=== PATIENT | female | born 1930 | race Caucasian/White ===

== ENCOUNTER 2016-12-12 12:41 | Inpatient (IN) | payer OTHER ==
[~2016-12-12] VITALS: Ht 152.4 cm; Wt 41.3 kg
[2016-12-12] MEDS ORDERED: MAGNESIUM HYDROXIDE 30 ML UDC PO PRN (13:30)
[2016-12-12] MEDS ORDERED: ACETAMINOPHEN 325 MG TABLET PO PRN (13:30)
[2016-12-12] MEDS ORDERED: clonazePAM 0.5 MG TABLET PO PRN (13:30)
[2016-12-12] MEDS ORDERED: MAG HYDROX/AL HYDROX/SIMETH 30 ML UDC PO PRN (13:30)
[2016-12-12] MEDS ORDERED: MEMA28CA PO (13:47)
[2016-12-12] MEDS ORDERED: SITA100T PO (13:47)
[2016-12-12] MEDS ORDERED: VENL37.55 PO (13:47)
[2016-12-12] MEDS ORDERED: ATOR10TA PO (13:47)
[2016-12-12] MEDS ORDERED: METF500T4 PO (13:47)
[2016-12-12] MEDS ORDERED: OLME40TA3 PO (13:47)
[2016-12-12] MEDS ORDERED: PIOG15TA3 PO (13:47)
[2016-12-12 13:48] VITALS: BP 147/64
[2016-12-12] MEDS: DIVALPROEX SODIUM 125 MG CAP.SPRINK PO SCH ×3 (14:00→21:30)
--- NOTE | 2016-12-12 14:30 | NUR ---
GPS RN: DIRECT ADMISSION FROM [facility], PATIENT ARRIVED AT 1300. PATIENT IS ON 51/50 HOLD FOR DANGER TO OTHERS AND GRAVE DISABILITY. A/OX1, CONFUSED, GUARDED, ANXIOUS. VS STABLE. BELONGINGS CHECKED FOR CONTRABAND. ADMITTING ORDERS RECEIVED FROM DR. MARROQUIN, DR. MARINO NOTIFIED. PATIENT ORIENTED TO HER ROOM AND UNIT, SAFETY PRECAUTIONS IMPLEMENTED, CONTINUE TO MONITOR.
[2016-12-12 16:00] VITALS: BP 140/62
[2016-12-12] MEDS: MEMANTINE HCL 5 MG TABLET PO SCH (16:29)
[2016-12-12] MEDS: METFORMIN 500 MG TABLET PO SCH (16:30)
--- NOTE | 2016-12-12 17:45 | NUR ---
GPS RN: MRSA SWAB DONE, LAB NOTIFIED TO RUBBER PRESS OPERATOR.
[2016-12-12] MEDS ORDERED: Medication Not On Formulary EA (Sitagliptin Phosphate (Januvia) 100 MG) PO SCH (18:00)
[2016-12-12 20:00] VITALS: BP 128/63
[2016-12-12] MEDS: ATORVASTATIN 10 MG TABLET PO SCH (21:30)
[2016-12-13] MEDS: TEMAZEPAM 7.5 MG CAPSULE PO PRN (00:52)
[2016-12-13 07:27] LABS: ALBUMIN 3.4 g/dL (3.4-5.0); BILIRUBIN,TOTAL 0.3 mg/dL (0.2-1.0); CALCIUM, SERUM 8.9 mg/dL (8.5-10.1); CREATININE 1.2 mg/dL (0.6-1.3); POTASSIUM 3.7 mmol/L (3.5-5.1); TOTAL PROTEIN, SERUM 6.4 g/dL (6.4-8.2)
[2016-12-13] MEDS: VENLAFAXINE 37.5 MG TABLET PO SCH (08:03)
[2016-12-13] MEDS: PIOGLITAZONE HCL 15 MG TABLET PO SCH (08:04)
[2016-12-13] MEDS: LINAGLIPTIN 5 MG TABLET PO SCH (08:04)
[2016-12-13] MEDS: DIVALPROEX SODIUM 125 MG CAP.SPRINK PO SCH ×2 (08:04→21:02)
[2016-12-13] MEDS: METFORMIN 500 MG TABLET PO SCH ×2 (08:04→17:06)
[2016-12-13] MEDS: MEMANTINE HCL 5 MG TABLET PO SCH ×2 (08:04→17:06)
[2016-12-13 08:34] VITALS: BP 146/62
[2016-12-13 08:36] VITALS: BP 146/62
[2016-12-13] MEDS: Z GUARD REMEDY 2 OZ OINT TP SCH (09:00)
--- NOTE | 2016-12-13 14:33 | NUR ---
UR update: MAGGIE faxed clinicals (Psych H&P, Med H&P, med list, face sheet, psych progress note) to [facility] patient case coordinator for [facility] (fax: / phone: [phone] ext. [phone]). MAGGIE will follow-up.
[2016-12-13 16:00] VITALS: BP 144/76
--- NOTE | 2016-12-13 17:14 | NUR ---
Initial Discharge Plan: Per patient she lives in a house with family [address] [place] [address]. SW attempted to contact Nelly Abbasi ([phone]/ [phone]) However, both numbers were not in service. Patient might need placement. MAGGIE will follow- up with MD regarding most appropriate discharge and will help form a safe and proper discharge.
[2016-12-13] MEDS: BENICAR 40 MG PO SCH (18:30)
--- NOTE | 2016-12-13 19:30 | NUR ---
GPS RN NOTES RECEIVED IN THE ACTIVITY ROOM WITH FAMILY MEMBERS WITH HER,ABLE TO CONVERSE WITH FAMILY IN CALM MANNER.NO IV ACCESS.WILL CONTINUE TO MONITOR BEHAVIOR.
[2016-12-13 19:59] VITALS: BP 147/77
[2016-12-13 20:00] VITALS: BP 145/77
[2016-12-13] MEDS: ATORVASTATIN 10 MG TABLET PO SCH (22:19)
--- NOTE | 2016-12-13 23:00 | NUR ---
GPS RN NOTES AWAKE,OFFERED SLEEPING PILL BUT REFUSED
[2016-12-14 08:27] VITALS: BP 135/87
[2016-12-14] MEDS: VENLAFAXINE 37.5 MG TABLET PO SCH (08:43)
[2016-12-14] MEDS: METFORMIN 500 MG TABLET PO SCH ×2 (08:43→16:40)
[2016-12-14] MEDS: PIOGLITAZONE HCL 15 MG TABLET PO SCH (08:43)
[2016-12-14] MEDS: MEMANTINE HCL 5 MG TABLET PO SCH ×2 (08:43→16:40)
[2016-12-14] MEDS: DIVALPROEX SODIUM 125 MG CAP.SPRINK PO SCH ×2 (08:43→21:04)
[2016-12-14] MEDS: LINAGLIPTIN 5 MG TABLET PO SCH (08:43)
[2016-12-14] MEDS: BENICAR 40 MG PO SCH (08:44)
[2016-12-14] MEDS: Z GUARD REMEDY 2 OZ OINT TP SCH (08:45)
[2016-12-14 16:00] VITALS: BP 117/72
[2016-12-14 20:00] VITALS: BP 150/76
[2016-12-14] MEDS: ATORVASTATIN 10 MG TABLET PO SCH (21:04)
[2016-12-14] MEDS: TEMAZEPAM 7.5 MG CAPSULE PO PRN (23:24)
[2016-12-15 08:00] VITALS: BP 131/63
[2016-12-15] MEDS: LINAGLIPTIN 5 MG TABLET PO SCH (09:08)
[2016-12-15] MEDS: PIOGLITAZONE HCL 15 MG TABLET PO SCH (09:08)
[2016-12-15] MEDS: METFORMIN 500 MG TABLET PO SCH ×2 (09:08→16:49)
[2016-12-15] MEDS: VENLAFAXINE 37.5 MG TABLET PO SCH (09:08)
[2016-12-15] MEDS: MEMANTINE HCL 5 MG TABLET PO SCH ×2 (09:08→16:49)
[2016-12-15] MEDS: DIVALPROEX SODIUM 125 MG CAP.SPRINK PO SCH ×2 (09:08→21:43)
[2016-12-15] MEDS: BENICAR 40 MG PO SCH (09:09)
[2016-12-15] MEDS: Z GUARD REMEDY 2 OZ OINT TP SCH (09:10)
[2016-12-15 15:50] VITALS: BP 110/65
[2016-12-15 19:59] VITALS: BP 160/84
[2016-12-15] MEDS: ATORVASTATIN 10 MG TABLET PO SCH (21:43)
--- NOTE | 2016-12-16 00:21 | NUR ---
Pt has been calm & compliant but with flat affect. She gets quite anxious on & off but her po noc meds relatively decreased her anxiety level tonight.
[2016-12-16 07:27] LABS: BASOPHILS % (AUTO) 0.4 % (0.0-2.0); EOSINOPHILS % (AUTO) 0.3 % (0.0-6.0); HEMATOCRIT 33 % (33-45); HEMOGLOBIN 11.1 g/dL (11.5-14.8); LYMPHOCYTES # (AUTO) 2.1 /CMM (0.8-4.8); LYMPHOCYTES % (AUTO) 20.8 % (20.0-44.0); MEAN CORPUSCULAR HEMOGLOBIN 33 PG (26.0-33.0); MEAN CORPUSCULAR HGB CONC 34 g/dl (31.0-36.0); MEAN CORPUSCULAR VOLUME 97 fL (82-100); MONOCYTES # (AUTO) 0.6 /CMM (0.1-1.30); MONOCYTES % (AUTO) 6.1 % (2.0-12.0); NEUTROPHILS # (AUTO) 7.4 /CMM (1.8-8.9); NEUTROPHILS % (AUTO) 72.4 % (43.0-81.0); PLATELET COUNT (AUTO) 363 /CMM (150-450); RDW COEFFICIENT OF VARIATION 15.4 (11.5-15.0); RED BLOOD CELL COUNT(AUTO) 3.38 MIL/uL (4.0-5.2); WHITE BLOOD COUNT (AUTO) 10.3 K/uL (4.3-11.0)
[2016-12-16 08:00] VITALS: BP 159/86
[2016-12-16 08:19] LABS: ALBUMIN 3.9 g/dL (3.4-5.0); BILIRUBIN,TOTAL 0.3 mg/dL (0.2-1.0); CALCIUM, SERUM 10.1 mg/dL (8.5-10.1); CREATININE 0.8 mg/dL (0.6-1.3); POTASSIUM 4.1 mmol/L (3.5-5.1); TOTAL PROTEIN, SERUM 7.5 g/dL (6.4-8.2)
[2016-12-16] MEDS: DIVALPROEX SODIUM 125 MG CAP.SPRINK PO SCH ×2 (08:20→21:24)
[2016-12-16] MEDS: VENLAFAXINE 37.5 MG TABLET PO SCH (08:20)
[2016-12-16] MEDS: PIOGLITAZONE HCL 15 MG TABLET PO SCH (08:20)
[2016-12-16] MEDS: METFORMIN 500 MG TABLET PO SCH ×2 (08:20→16:55)
[2016-12-16] MEDS: MEMANTINE HCL 5 MG TABLET PO SCH ×2 (08:21→16:55)
[2016-12-16] MEDS: LINAGLIPTIN 5 MG TABLET PO SCH (08:23)
[2016-12-16] MEDS: Z GUARD REMEDY 2 OZ OINT TP SCH (08:29)
--- NOTE | 2016-12-16 10:34 | NUR ---
Reviewed psychosocial assessment done by Harika Brown. Addendum: 12/16/16 at 1035 by DENNY SERRANO Amended: Links added.
[2016-12-16] MEDS: BENICAR 40 MG PO SCH (11:50)
--- NOTE | 2016-12-16 13:27 | NUR ---
reed worker spoke to patient's Jag Ochoa ([phone]) who stated that patient can return home upon discharge. Patient's stated that he would be able to pick her up.
--- NOTE | 2016-12-16 13:56 | NUR ---
UR update: MAGGIE faxed clinicals (Psych progress note, med list) to [facility] case finishing machine adjuster for [facility] (fax: / phone: [phone] ext. [phone]). MAGGIE will follow-up
[2016-12-16 16:00] VITALS: BP 157/95
--- NOTE | 2016-12-16 19:30 | NUR ---
GPS RN NOTE, RECEIVED PATIENT AWAKE AND IN BED, NO S/S OR COMPLAINTS OF PAIN AT THIS TIME. PATIENT IS DISPLAYING NO S/S OF APPARENT DISTRESS AT THIS TIME. PATIENT HAS A ONE TO ONE SITTER FOR BEING AGGRESSIVE WITH STAFF. PATIENT BREATHING IS UNLABORED WITH EQUAL RISE AND FALL OF THE CHEST. PATIENT IS ALERT AND ORIENTED X 1 ON ROOM AIR WITH A SPO2 95%. PATIENT COMPLIANT WITH MEDICATIONS, DEPRESSED, ANXIOUS, CONFUSED AT TIMES, AND NEEDS REORIENTATION. PATIENT DENIES SUICIDE AND HOMICIDAL IDEATIONS AT THIS TIME. PATIENT ASSISTED WITH TURNING AND REPOSITIONING Q2HR AND PRN FOR COMFORT AND CIRCULATION. PATIENT HAS NO NEEDS AT THIS TIME. PATIENT EDUCATED ON THE USE OF THE CALL ESTRADA. PATIENT BED SIDE RAILS UP X2 FOR SAFETY, BED IS LOCKED AND LOW WILL CONTINUE TO MONITOR AND MAINTAIN SAFETY.
[2016-12-16 19:46] VITALS: BP 175/72
[2016-12-16] MEDS: TEMAZEPAM 7.5 MG CAPSULE PO PRN (21:24)
[2016-12-16] MEDS: ATORVASTATIN 10 MG TABLET PO SCH (21:24)
--- NOTE | 2016-12-16 21:24 | NUR ---
GPS RN NOTE, PATIENT HAS A COMPLAINT OF NOT BEING ABLE TO SLEEP AND WOULD LIKE A SLEEPING AID AT THIS TIME. PATIENT VITAL SIGNS ARE STABLE. GAVE RESTORIL 7.5MG PO HS ORDERED. WILL REASSESS FOR INSOMNIA AND I WILL CONTINUE TO MONITOR THIS PATIENT.
--- NOTE | 2016-12-16 22:22 | NUR ---
GPS RN NOTE, PATIENT VITAL SIGNS ARE FOLLOWS B/P 175/72, PULSE OF 89, SPO2 95, TEMP 97.8, REPARATIONS 16. PAGED [facility] AND INFORMED DR LENZ OF MY FINDINGS. DR LENZ ORDER TO GIVE HYDRALAZINE 25MG PO Q6HR PRN GIVE IF SYSTOLIC B/P IS GREATER 160. ALL ORDERS NOTED AND CARRIED OUT WILL CONTINUE TO MONITOR THIS PATIENT.
[2016-12-16] MEDS ORDERED: hydrALAZINE HCL 25 MG TABLET ONE (22:27)
[2016-12-16] MEDS ORDERED: hydrALAZINE HCL 25 MG TABLET PO PRN (22:30)
--- NOTE | 2016-12-16 22:32 | NUR ---
GPS RN NOTE, GAVE HYDRALAZINE 25MG PO Q6HR PRN ORDERED WILL CONTINUE TO MONITOR THIS PATIENT.
[2016-12-17 08:00] VITALS: BP 154/79
[2016-12-17] MEDS: VENLAFAXINE 37.5 MG TABLET PO SCH (08:25)
[2016-12-17] MEDS: LINAGLIPTIN 5 MG TABLET PO SCH (08:25)
[2016-12-17] MEDS: DIVALPROEX SODIUM 125 MG CAP.SPRINK PO SCH (08:25)
[2016-12-17] MEDS: MEMANTINE HCL 5 MG TABLET PO SCH (08:25)
[2016-12-17] MEDS: PIOGLITAZONE HCL 15 MG TABLET PO SCH (08:25)
[2016-12-17] MEDS: METFORMIN 500 MG TABLET PO SCH (08:25)
[2016-12-17] MEDS: Z GUARD REMEDY 2 OZ OINT TP SCH (08:54)
[2016-12-17] MEDS ORDERED: LISINOPRIL (20MG) 20 MG TABLET PO SCH (09:00)
[2016-12-17 10:04] VITALS: BP 154/79
[2016-12-17] MEDS: BENICAR 40 MG PO SCH (10:38)
--- NOTE | 2016-12-17 11:19 | NUR ---
RN-CO: PATIENT REMAIN CALM AND COOPERATIVE TO CARE, DENIED SUICIDAL AND HOMICIDAL IDEATION. AFFECT IS BRIGHT. DR CLAIRE GAVE AN ORDER VIA PHONE CALL TO DISCONTINUE HOLD AND DISCHARGE PATIENT TODAY, NOTED AND CARRIED OUT.
--- NOTE | 2016-12-17 15:07 | NUR ---
GPS MASTER CHEF NOTE: PATIENT DISCHARGE BACK HOME WITH ,VIA CAR IN STABLE CONDITION VSS WNL BP 116/59 P 79 T 98.3 R 19 RX GIVEN FAX TO [facility] [phone] EXPLAIN TO AND GIVEN , PATIENT DENIES SI/HI NO S/S DISTRESS NOTED DR CLAIRE DC PATIENT HOME DR GARCIA AWARE AND AGREED FOR DISCHARGE, PATIENT BELONGINGS RETURNED TO PATIENT EXCEPT PT ELVIS MOUSE WATCH PT AWARE AND OK WITH NO COMPLAINING . Addendum: 12/17/16 at 1624 by GAYE BENAVIDEZ RN PATIENT REFUSED TO SIGN DISCHARGE PAPERS AND REFUSED SKIN ASSESSMENT.
--- NOTE | 2016-12-18 09:21 | NUR ---
Discharge Note: Patient was discharged back home [address] [place] [address] her Jag Ochoa ([phone]) was informed and picked her via private vehicle. Patient's and patient were both agreeable with the discharge plan. Patient's mood and affect were appropriate. Patient denied suicidal and homicidal ideations upon discharge. Patient left with no distress. Patient has a follow-up appointment December at 1:30pm with Nael Baird from [facility] [id number] [place] [id number]. Patient also has an appointment December 25, 2016 at 3:00pm with Dr. Rubén Simon.
--- NOTE | 2016-12-18 09:41 | NUR ---
[employer] faxed discharge summary to [facility] (fax:[phone]/phone: [phone]) caser up from [facility] [address] [facility]. Auth#[id number].
== END 2016-12-17 14:57 | disposition home or self-care (01) | DRG 885 ==
LOC: GPS 12:41
PROVIDERS: ADMIT Psychiatry & Neurology Psychiatry; ATTEND Internal Medicine
DX: F39 Unspecified mood [affective] disorder (principal); E78.5 Hyperlipidemia, unspecified; I10 Essential (primary) hypertension; E11.9 Type 2 diabetes mellitus without complications; F29 Unspecified psychosis not due to a substance or known physiological condition; F32.9 Major depressive disorder, single episode, unspecified; F03.90 Unspecified dementia, unspecified severity, without behavioral disturbance, psychotic disturbance, mood disturbance, and anxiety; Z79.899 Other long term (current) drug therapy
CPT/HCPCS: 36415; 71111-TC; 80053-TC; 80061-TC; 80164-TC; 85025-TC; 87081-TC